=== PATIENT | male | born 1965 | race Caucasian/White ===

== ENCOUNTER 2020-04-27 10:50 | Emergency (ER) | payer OTHER ==
[2020-04-27] MEDS ORDERED: Diltiazem 25 MG/5 ML SDV IVPUSH ONE (10:55)
--- NOTE | 2020-04-27 10:55 | EDM.PDOC ---
ED HPI GENERAL MEDICAL PROBLEM - General Stated Complaint: CHEST PAIN Time Seen by Provider: 04/27/20 10:51 Source of Information: Reports: Patient History Limitations: Reports: No Limitations - History of Present Illness INITIAL COMMENTS - FREE TEXT/NARRATIVE: 55-year-old male no past medical history presents for rapid heart rate, shortness of breath, lower extremity edema worsening over the last 3 or 4 days. Patient went to see clinic physician, and had an EKG revealing new onset atrial fibrillation with rapid ventricular response. Patient notes that his shortness of breath is worse with exertion and with lying flat. He has noted 3 days of worsening lower extremity edema that makes it hard for him to put his shoes on. He denies any associated chest pain. He does note that he had recent root canal procedure, and symptoms seem to have started after this. He denies any cough, fever - Related Data Allergies Allergy/AdvReac Type Severity Reaction Status Date / Time hydrocodone AdvReac Shortness Verified 04/27/20 11:05 of Breath Home Meds: Home Meds Loratadine/Pseudoephedrine [Claritin-D 24 Hour Tablet] 1 dose PO ASDIRECTED 04/27/20 [History] ED ROS GENERAL - Review of Systems Review Of Systems: Comprehensive ROS is negative, except as noted in HPI. ED EXAM, GENERAL - Physical Exam Exam: See Below Exam Limited By: No Limitations General Appearance: Alert, WD/WN, No Apparent Distress Throat/Mouth: Normal Voice, No Airway Compromise Head: Atraumatic, Normocephalic Respiratory/Chest: No Respiratory Distress, Lungs Clear, Normal Breath Sounds, No Accessory Muscle Use Cardiovascular: Normal Peripheral Pulses, Tachycardia, Other (Bilateral symmetric pitting edema of lower extremities) GI/Abdominal: Soft, Non-Tender Extremities: Normal Inspection Neurological: Alert Psychiatric: Normal Affect, Normal Mood Skin Exam: Warm, Dry, Intact #1 Interpretation EKG Date: 04/27/20 Time: 11:07 Rhythm: A-Fib Rate (Beats/Min): 160 [place]: Normal QRS: Normal ST-T: Normal QT: Normal Comparison: NA - No Prior EKG Course - Vital Signs Last Recorded V/S: Last Vital Signs Temp 97.5 F 04/27/20 10:57 Pulse 127 H 04/27/20 12:23 Resp 20 04/27/20 12:23 BP 153/84 H 04/27/20 12:23 Pulse Ox 98 04/27/20 12:23 - Orders/Labs/Meds Orders: Active Orders 24 hr Category Date Time Status Cardiac Monitoring [RC] . DIRECTED Care 04/27/20 10:56 Active EKG Documentation Completion [RC] STAT Care 04/27/20 10:56 Active Pulse Oximetry [RC] ASDIRECTED Care 04/27/20 10:56 Active B-TYPE NATRIURETIC PEPTIDE,BNP [CHEM] Stat Lab 04/27/20 10:55 Received PTT,PARTIAL THROMBOPLSTIN TIME [COAG] Q6 Lab 04/27/20 12:45 Ordered PTT,PARTIAL THROMBOPLSTIN TIME [COAG] Q6 Lab 04/27/20 18:45 Ordered PTT,PARTIAL THROMBOPLSTIN TIME [COAG] Q6 Lab 04/28/20 00:45 Ordered PTT,PARTIAL THROMBOPLSTIN TIME [COAG] Q6 Lab 04/28/20 06:45 Ordered PTT,PARTIAL THROMBOPLSTIN TIME [COAG] Q6 Lab 04/28/20 12:45 Ordered PTT,PARTIAL THROMBOPLSTIN TIME [COAG] Q6 Lab 04/28/20 18:45 Ordered PTT,PARTIAL THROMBOPLSTIN TIME [COAG] Q6 Lab 04/29/20 00:45 Ordered Diltiazem [Cardizem] 100 mg Med 04/27/20 12:15 Active Sodium Chloride 0.9% [Normal Saline] 100 ml IV NOW Heparin Sod,Pork In 0.45% Nacl [Heparin-1/2Ns 25,000 Med 04/27/20 12:45 Ordered Units/500] 25,000 unit in 500 ml IV TITRATE Sodium Chloride 0.9% [Normal Saline] 1,000 ml Med 04/27/20 11:50 Active IV .Bolus Sodium Chloride 0.9% [Saline Flush] Med 04/27/20 10:56 Active 10 ml FLUSH ASDIRECTED PRN Sodium Chloride 0.9% [Saline Flush] Med 04/27/20 10:56 Active 2.5 ml FLUSH ASDIRECTED PRN Saline Lock Insert [OM.PC] Stat Oth 04/27/20 10:56 Ordered Medication Orders Sodium Chloride (Normal Saline) 1,000 mls @ 150 mls/hr IV .Bolus ONE Stop: 04/27/20 18:29 Last Admin: 04/27/20 12:04 Dose: 150 mls/hr Documented by: RAVINDRA Diltiazem HCl 100 mg/ Sodium (Chloride) 100 mls @ 5 mls/hr IV NOW JOAQUÍN; Protocol Last Admin: 04/27/20 12:12 Dose: 5 mg/hr, 5 mls/hr Documented by: RAVINDRA Heparin Sodium/Sodium Chloride (Heparin-1/2ns 25,000 Units/500) 25,000 unit in 500 mls @ 21.772 mls/hr IV TITRATE JOAQUÍN; Protocol Sodium Chloride (Saline Flush) 10 ml FLUSH ASDIRECTED PRN PRN Reason: Keep Vein Open Sodium Chloride (Saline Flush) 2.5 ml FLUSH ASDIRECTED PRN PRN Reason: Keep Vein Open Labs: Laboratory Tests 04/27/20 04/27/20 04/27/20 Range/Units 10:55 10:55 10:55 WBC 11.47 H (4.0-11.0) K/uL RBC 4.69 (4.50-5.90) M/uL Hgb 14.8 (13.0-17.0) g/dL Hct 45.6 (38.0-50.0) % MCV 97.2 (80.0-98.0) fL MCH 31.6 (27.0-32.0) pg MCHC 32.5 (31.0-37.0) g/dL RDW Std Deviation 51.8 (28.0-62.0) fl RDW Coeff of Marty 15 (11.0-15.0) % Plt Count 259 (150-400) K/uL MPV 10.90 (7.40-12.00) fL Neut % (Auto) 75.2 (48.0-80.0) % Lymph % (Auto) 16.7 (16.0-40.0) % [place] % (Auto) 6.5 (0.0-15.0) % Eos % (Auto) 1.3 (0.0-7.0) % Baso % (Auto) 0.3 (0.0-1.5) % Neut # (Auto) 8.6 H (1.4-5.7) K/uL Lymph # (Auto) 1.9 (0.6-2.4) K/uL [place] # (Auto) 0.8 (0.0-0.8) K/uL Eos # (Auto) 0.2 (0.0-0.7) K/uL Baso # (Auto) 0.0 (0.0-0.1) K/uL Nucleated RBC % 0.0 /100WBC Nucleated RBCs # 0 K/uL INR 1.19 APTT 22.9 (18.6-31.3) SEC Lactate 2.9 H* (0.20-2.00) mmol/L Sodium (136-148) mmol/L Potassium (3.5-5.1) mmol/L Chloride (98-107) mmol/L Carbon Dioxide (21.0-32.0) mmol/L BUN (7.0-18.0) mg/dL Creatinine (0.8-1.3) mg/dL Est Cr Clr Drug Dosing mL/min Estimated GFR (MDRD) ml/min Glucose (74-106) mg/dL Calcium (8.5-10.1) mg/dL Magnesium (1.8-2.4) mg/dL Total Bilirubin (0.2-1.0) mg/dL AST (15-37) IU/L ALT (14-63) IU/L Alkaline Phosphatase (46-116) U/L Troponin I (0.000-0.056) ng/mL Total Protein (6.4-8.2) g/dL Albumin (3.4-5.0) g/dL Globulin (2.6-4.0) g/dL Albumin/Globulin Ratio (0.9-1.6) SARS-CoV-2 RNA (ULISES) (NEGATIVE) 04/27/20 04/27/20 Range/Units 10:55 11:18 WBC (4.0-11.0) K/uL RBC (4.50-5.90) M/uL Hgb (13.0-17.0) g/dL Hct (38.0-50.0) % MCV (80.0-98.0) fL MCH (27.0-32.0) pg MCHC (31.0-37.0) g/dL RDW Std Deviation (28.0-62.0) fl RDW Coeff of Marty (11.0-15.0) % Plt Count (150-400) K/uL MPV (7.40-12.00) fL Neut % (Auto) (48.0-80.0) % Lymph % (Auto) (16.0-40.0) % [place] % (Auto) (0.0-15.0) % Eos % (Auto) (0.0-7.0) % Baso % (Auto) (0.0-1.5) % Neut # (Auto) (1.4-5.7) K/uL Lymph # (Auto) (0.6-2.4) K/uL [place] # (Auto) (0.0-0.8) K/uL Eos # (Auto) (0.0-0.7) K/uL Baso # (Auto) (0.0-0.1) K/uL Nucleated RBC % /100WBC Nucleated RBCs # K/uL INR APTT (18.6-31.3) SEC Lactate (0.20-2.00) mmol/L Sodium 144 (136-148) mmol/L Potassium 3.8 (3.5-5.1) mmol/L Chloride 107 (98-107) mmol/L Carbon Dioxide 20.6 L (21.0-32.0) mmol/L BUN 32 H (7.0-18.0) mg/dL Creatinine 1.8 H (0.8-1.3) mg/dL Est Cr Clr Drug Dosing 46.37 mL/min Estimated GFR (MDRD) 39.4 ml/min Glucose 139 H (74-106) mg/dL Calcium 9.3 (8.5-10.1) mg/dL Magnesium 2.2 (1.8-2.4) mg/dL Total Bilirubin 2.5 H (0.2-1.0) mg/dL AST 35 (15-37) IU/L ALT 61 (14-63) IU/L Alkaline Phosphatase 71 (46-116) U/L Troponin I 0.063 H* (0.000-0.056) ng/mL Total Protein 7.4 (6.4-8.2) g/dL Albumin 4.1 (3.4-5.0) g/dL Globulin 3.3 (2.6-4.0) g/dL Albumin/Globulin Ratio 1.2 (0.9-1.6) SARS-CoV-2 RNA (ULISES) NEGATIVE (NEGATIVE) Meds: Medications Generic Name Dose Route Start Last Admin Trade Name Dale PRN Reason Stop Dose Admin Sodium Chloride 1,000 mls @ 150 mls/hr 04/27/20 11:50 04/27/20 12:04 Normal Saline IV 04/27/20 18:29 150 mls/hr .Bolus ONE Administration Diltiazem HCl 100 mg/ Sodium 100 mls @ 5 mls/hr 04/27/20 12:15 04/27/20 12:12 Chloride IV 5 mg/hr NOW JOAQUÍN 5 mls/hr Administration Protocol 5 MG/HR Heparin Sodium/Sodium Chloride 25,000 unit in 500 mls @ 21.772 mls/hr 04/27/20 12:45 Heparin-1/2ns 25,000 Units/500 IV TITRATE JOAQUÍN Protocol 12 UNITS/KG/HR Sodium Chloride 10 ml 04/27/20 10:56 Saline Flush FLUSH ASDIRECTED PRN Keep Vein Open Sodium Chloride 2.5 ml 04/27/20 10:56 Saline Flush FLUSH ASDIRECTED PRN Keep Vein Open Discontinued Medications Generic Name Dose Route Start Last Admin Trade Name Dale PRN Reason Stop Dose Admin Aspirin 324 mg 04/27/20 11:52 04/27/20 12:02 Aspirin PO 04/27/20 11:53 324 mg ONETIME ONE Administration Diltiazem HCl 20 mg 04/27/20 10:55 04/27/20 11:01 Diltiazem IVPUSH 04/27/20 10:56 20 mg ONETIME ONE Administration Diltiazem HCl 60 mg 04/27/20 11:15 04/27/20 11:21 Cardizem PO 04/27/20 11:16 60 mg ONETIME ONE Administration Furosemide 40 mg 04/27/20 12:01 04/27/20 12:17 Lasix IVPUSH 04/27/20 12:02 40 mg NOW ONE Administration Heparin Sodium (Porcine) 4,000 units 04/27/20 12:38 Heparin Sodium IVPUSH 04/27/20 12:39 .BOLUS ONE Sodium Chloride 1,000 mls @ 999 mls/hr 04/27/20 10:56 04/27/20 12:28 Normal Saline IV 04/27/20 11:56 Not Given .Bolus ONE Diltiazem HCl 100 mg/ Sodium 100 mls @ 5 mls/hr 04/27/20 11:15 Chloride IV NOW JOAQUÍN Protocol 5 MG/HR - Re-Assessments/Exams Free Text/Narrative Re-Assessment/Exam: 04/27/20 11:07 Patient presents with A. fib RVR. Patient was given Cardizem 20 mg with good response, heart rate decreased to the 57m584h. Will give cardizem 60mg PO. Will follow up labs and chest x-ray. Patient does have evidence of fluid overload likely related to his new onset A. fib RVR. Patient will need admission. 04/27/20 11:47 Mildly elevated troponin likely 2/2 demand ischemia, low suspicion ACS, aspirin given 04/27/20 12:02 Patient's heart rate back up in the 1 teens to 140s. Cardizem drip has been started. Patient's blood pressure has remained stable throughout stay. Patient does have evidence of acute kidney injury likely secondary to his rapid heart rate over the last several days. His chest x-ray is remarkable for signs of pulmonary edema consistent with his lower extremity edema. Lasix 40 mg ordered, fluids also being given at a rate of 150 an hour. Will call hospitalist for admission versus transfer. 04/27/20 12:[address] Kirk at [facility] who recommends heparin bolus plus drip and agrees to consult on patient. Dr. Baker hospitalist agrees to admit patient to her service. Departure - Departure Time of Disposition: 12:42 Disposition: DC/Tfer to Acute Hospital 02 Clinical Impression: Demand ischemia, ALEX (acute kidney injury) Afib Qualifiers: Atrial fibrillation type: unspecified Qualified Code(s): I48.91 - Unspecified atrial fibrillation - Discharge Information Referrals: Raul Syed MD [Primary Care Provider] - Critical Care Note - Critical Care Note Total Time (mins): 35 Sepsis Event Note (ED) - Focused Exam Vital Signs: Vital Signs Temp Pulse Resp BP Pulse Ox 04/27/20 12:23 127 H 20 153/84 H 98 04/27/20 11:52 132 H 20 109/95 H 97 04/27/20 11:38 117 H 20 150/99 H 96 04/27/20 11:23 113 H 18 146/103 H 96 04/27/20 11:06 113 H 20 151/101 H 96 04/27/20 10:57 97.5 F 152 H 22 H 161/116 H 98 - My Orders Last 24 Hours: My Active Orders 04/27/20 10:55 B-TYPE NATRIURETIC PEPTIDE,BNP [CHEM] Stat 04/27/20 10:56 Cardiac Monitoring [RC] . DIRECTED EKG Documentation Completion [RC] STAT Pulse Oximetry [RC] ASDIRECTED Sodium Chloride 0.9% [Saline Flush] 10 ml FLUSH ASDIRECTED PRN Sodium Chloride 0.9% [Saline Flush] 2.5 ml FLUSH ASDIRECTED PRN Saline Lock Insert [OM.PC] Stat 04/27/20 11:50 Sodium Chloride 0.9% [Normal Saline] 1,000 ml IV .Bolus 04/27/20 12:15 Diltiazem [Cardizem] 100 mg Sodium Chloride 0.9% [Normal Saline] 100 ml IV NOW 04/27/20 12:45 PTT,PARTIAL THROMBOPLSTIN TIME [COAG] Q6H Heparin Sod,Pork In 0.45% Nacl [Heparin-1/2Ns 25,000 Units/500] 25,000 unit in 500 ml IV TITRATE 04/27/20 18:45 PTT,PARTIAL THROMBOPLSTIN TIME [COAG] Q6H 04/28/20 00:45 PTT,PARTIAL THROMBOPLSTIN TIME [COAG] Q6H 04/28/20 06:45 PTT,PARTIAL THROMBOPLSTIN TIME [COAG] Q6H 04/28/20 12:45 PTT,PARTIAL THROMBOPLSTIN TIME [COAG] Q6H 04/28/20 18:45 PTT,PARTIAL THROMBOPLSTIN TIME [COAG] Q6H 04/29/20 00:45 PTT,PARTIAL THROMBOPLSTIN TIME [COAG] Q6H - Assessment/Plan Last 24 Hours: My Active Orders 04/27/20 10:55 B-TYPE NATRIURETIC PEPTIDE,BNP [CHEM] Stat 04/27/20 10:56 Cardiac Monitoring [RC] . DIRECTED EKG Documentation Completion [RC] STAT Pulse Oximetry [RC] ASDIRECTED Sodium Chloride 0.9% [Saline Flush] 10 ml FLUSH ASDIRECTED PRN Sodium Chloride 0.9% [Saline Flush] 2.5 ml FLUSH ASDIRECTED PRN Saline Lock Insert [OM.PC] Stat 04/27/20 11:50 Sodium Chloride 0.9% [Normal Saline] 1,000 ml IV .Bolus 04/27/20 12:15 Diltiazem [Cardizem] 100 mg Sodium Chloride 0.9% [Normal Saline] 100 ml IV NOW 04/27/20 12:45 PTT,PARTIAL THROMBOPLSTIN TIME [COAG] Q6H Heparin Sod,Pork In 0.45% Nacl [Heparin-1/2Ns 25,000 Units/500] 25,000 unit in 500 ml IV TITRATE 04/27/20 18:45 PTT,PARTIAL THROMBOPLSTIN TIME [COAG] Q6H 04/28/20 00:45 PTT,PARTIAL THROMBOPLSTIN TIME [COAG] Q6H 04/28/20 06:45 PTT,PARTIAL THROMBOPLSTIN TIME [COAG] Q6H 04/28/20 12:45 PTT,PARTIAL THROMBOPLSTIN TIME [COAG] Q6H 04/28/20 18:45 PTT,PARTIAL THROMBOPLSTIN TIME [COAG] Q6H 04/29/20 00:45 PTT,PARTIAL THROMBOPLSTIN TIME [COAG] Q6H
[2020-04-27] MEDS ORDERED: Sodium Chloride 0.9% 2.5 ML Syringe FLUSH PRN (10:56)
[2020-04-27] MEDS ORDERED: Sodium Chloride 0.9% 1,000 ML IV ONE ×2 (10:56→11:50)
[2020-04-27] MEDS ORDERED: Sodium Chloride 0.9% 10 ML Syringe FLUSH PRN (10:56)
[2020-04-27] MEDS ORDERED: Diltiazem 100 MG in Sodium Chloride 0.9% 100 ML IV SCH ×2 (11:15→12:15)
[2020-04-27] MEDS ORDERED: Diltiazem IR 60 MG Tab PO ONE (11:15)
[2020-04-27 11:42] LABS: CARBON DIOXIDE,CO2 20.6 mmol/L (21.0-32.0); POTASSIUM,K 3.8 mmol/L (3.5-5.1)
[2020-04-27] MEDS ORDERED: Aspirin 81 MG Tab.Chew PO ONE (11:52)
--- NOTE | 2020-04-27 11:54 | CR ---
INDICATION: Shortness of breath. Edema. Atrial fibrillation. TECHNIQUE: Chest 1 view COMPARISON: None FINDINGS: Cardiovascular and mediastinum: Moderate cardiomegaly and pulmonary vascular congestion. Lungs and pleural spaces: Moderate central edema. No lobar consolidations or significant effusions. No pneumothorax. Bones and soft tissues: No significant findings. IMPRESSION: CHF with moderate edema. Dictated by Lionel Riggins MD @ Apr 27 2020 11:53AM Signed by Dr. Lionel Riggins @ Apr 27 2020 11:54AM
[2020-04-27] MEDS ORDERED: Furosemide 40 MG/4 ML VIAL IVPUSH ONE (12:01)
[2020-04-27] MEDS ORDERED: Heparin Sodium 5,000 Units/ML Vial IVPUSH ONE (12:38)
[2020-04-27] MEDS ORDERED: Heparin Sod,Pork In 0.45% Nacl 25,000 UNIT/500 ML IV.SOLN IV SCH (12:45)
== END 2020-04-27 14:53 ==
LOC: MW.ED 10:50
DX: I48.91 Unspecified atrial fibrillation (principal); N17.9 Acute kidney failure, unspecified; I24.8 Other forms of acute ischemic heart disease; Z20.828 Contact with and (suspected) exposure to other viral communicable diseases; Z88.5 Allergy status to narcotic agent
CPT/HCPCS: 36415; 71045; 80053; 83605; 83735; 83880; 84484; 85025; 85610; 85730; 87635; 93005; 96365; 96366; 96368; 96375; 96376; 99285; A9270; J1644; J1940; J3490; J7030; J7050; 93010; U0002